=== PATIENT | male | born 1995 | race Caucasian/White ===

== ENCOUNTER 2025-03-29 09:03 | Outpatient (CLI) | payer OTHER, SELFPAY ==
--- NOTE | ~2025-03-29 | US_ITS ---
EXAMINATION: US right upper quadrant DATE: 03/29/2025 09:50 INDICATION: Abnormal liver enzymes TECHNIQUE: Multiple grayscale and Doppler ultrasound images of the abdomen were obtained. COMPARISON: None FINDINGS: Pancreas is normal. The visualized proximal aorta and inferior vena cava are normal. Liver has normal echogenicity and contour, with a smooth surface. No liver lesion identified. No intrahepatic biliary duct dilation suspected. Portal venous flow was seen in the hepatopetal, normal direction and has no rmal Doppler waveform. The gallbladder is normal in appearance. There is no cholelithiasis. The comm on bile duct measures 2 mm, which is normal. Sonographic Melendez sign was reported as negative by the cpo. Right kidney measures 14.0 x 7.2 x 6.3 cm with no hydronephrosis. IMPRESSION: 1. Normal right upper quadrant ultrasound with no cholelithiasis nor intra or extra hepatic biliary d uctal dilation. Reviewed, dictated and finalized at location A. IMPRESSION: 1. Normal right upper quadrant ultrasound with no cholelithiasis nor intra or e xtra hepatic biliary ductal dilation.
--- OUTSIDE RECORDS SUMMARY | 2025-03-29 09:27 | XMS_ITS | Referral Summary ---
Author Organization [facility] Address [facility] [place] [address] Care Team Providers Care Audit Officer Name Role Phone No, Physician Primary Care Provider [phone] Encounters Date Type Department Care Team Description 03/23/2025 12:00 PM CDT Office Visit [facility] Surgery [facility] 6th [place] [address] Closed fracture of left mandibular angle, initial encounter (HCC) (Primary Dx); Closed fracture of body of mandible, unspecified laterality, initial encounter (HCC) 03/08/2025 10:30 AM CDT - 03/08/2025 4:00 PM CDT Surgery [facility] Operating Room [address] [place] [address] Anitra Fisher MD OPEN REDUCTION INTERNAL FIXATION BILATERAL MANDIBULAR FRACTURE. 03/08/2025 10:27 AM CDT Anesthesia Event [facility] Operating Room [address] [place] [address] Danilo Zapien MD Montgomery, Andrea J., NP 03/08/2025 8:38 AM CDT - 03/08/2025 6:00 PM CDT Hospital Encounter [facility] Operating Room [address] [place] [address] Anitra Fisher MD Closed fracture of left mandibular angle, initial encounter (HCC) (Primary Dx); Closed fracture of right side of mandibular body with routine healing, subsequent encounter Discharge Disposition: Discharge to home or self care 03/07/2025 12:45 PM CDT Office Visit [facility] Surgery [address] [facility] 6th [place] [address] [place] [address] Nita Glynn NP Closed fracture of body of mandible, unspecified laterality, initial encounter (HCC) (Primary Dx) 03/01/2025 10:12 PM CDT - 03/01/2025 11:05 PM CDT Emergency [facility] Emergency Department [address] [place] [id number] Kaiden Mata MD Bilateral closed fracture of mandible, initial encounter (HCC) (Primary Dx) Discharge Disposition: Discharge to home or self care from Last 3 Months Allergies No known active allergies Medications HYDROcodone-cornel taminophen (NORCO) 5-325 mg per tabletIndicatio ns:Pain Take 1 tablet by mouth every 6 (six) hours as needed for pain for up to 15 doses 15 tablet 5 Active chlorhexidine (PERIDEX) 0.12 % oral rinse Apply 15 mL to the mouth or throat 2 (two) times a day 900 mL 5 03/31/20 25 Active Additional Information Patient taking differently:15 mL mouth/throat 2 times daily,Indications: Mouth Infection Prevention, Informant: Self, Reported on 03/08/2025 acetaminophen (TYLENOL) 325 mg tablet Take 1 tablet (325 mg total) by mouth every 6 (six) hours as needed 6 Active ibuprofen 200 mg tab/cap Take 2 tablet/capsule (400 mg total) by mouth every 6 (six) hours as needed for pain Active oxyCODONE (ROXICODONE) 5 mg immediate release tabletIndicatio ns:Pain Take 1 tablet (5 mg total) by mouth every 4 (four) hours as needed for pain 15 tablet 5 Active chlorhexidine (PERIDEX) 0.12 % oral rinse Apply 10 mL to the mouth or throat 4 (four) times a day for 15 days 600 mL 5 03/23/20 25 amoxicillin-cla vulanate (AUGMENTIN) 875-125 mg per tabletIndicatio ns:Skin/Soft Tissue Infection Take 1 tablet (875 mg of amoxicillin total) by mouth 2 (two) times a day for 5 days 10 tablet 5 03/13/20 Active Problems Problem Noted Date Diagnosed Date Closed fracture of mandible 03/03/2025 Tears of meniscus and ACL of left knee 6 Immunizations Immunization Administration Dates Next Due DTP / HiB 08/02/1996, 6,03/23/1996,01/19,1995 Hep B, Adolescent or Pediatric 1995 Influenza, Quadrivalent, Spl it, Preservative Free, Intramuscular 09/15/2018 MMR 11/01/1996 OPV 05/25/1996,03/23/1996,01/20/1996 Pneumococcal Polysaccharide PPV23 02/16/2016 Tdap 04/26/2020 Varicella 11/01/1996 Social History Tobacco Use Types Packs/Day Years Used Date Smoking Tobacco: Every Day Vaping Started: 2022 Passive Smoke Exposure: Never Smokeless Tobacco: Never AUDIT-C Answer Date Recorded Q1: How often do you have a drink containing alc ohol? Monthly or less 03/04/2025 Q2: How many drinks containi ng alcohol do you have on a typical day when you are drinking? 10 or more 03/04/2025 Q3: How often do you have si x or more drinks on one occasion? Monthly 03/04/2025 Personal Safety Answer Date Recorded Have you ever been in or are you currently in a harmful physical or emotional relationship or is someone making you feel afraid or unsafe? Patient unable to answer 03/08/2025 Sex and Gender Information Value Date Recorded Sex Assigned at Not on file Legal Sex Male 11:35 PM [employer]PER[employer] Gender Identity Not on file Sexual Orientation Not on file Last Filed Vital Signs Vital Sign Reading Time Taken Comments Blood Pressure 161/91 03/08/2025 4:20 PM CDT Pulse 71 03/08/2025 4:30 PM CDT Temperature 36.5 C (97.7 F) 03/08/2025 2:50 PM CDT Respiratory Rate 16 03/08/2025 4:30 PM CDT Oxygen Saturation 97% 03/08/2025 4:30 PM CDT Inhaled Oxygen Concentration - - Weight 79.4 kg (175 lb) 03/08/2025 9:45 AM CDT Height 172.7 cm (5' 8) 03/04/2025 10:25 AM CDT Body Mass Index 26.61 03/04/2025 10:25 AM CDT Plan of Treatment Not on file Medical Devices Implanted Type Area Towel Cabinet Repairer Device Identifier Shelf Expiration Date Model / Serial / Lot J Carlos Craniomaxillofacial Smart Lock Leibinger Medway 2 [id number] Hole Mandible Mini [id number] - Sna - [id number] Implanted:Qty: 1 on 03/08/2025 by Anitra Fisher MD at [facility] Plate Bilateral : Mandible J Carlos Craniomaxillofacial [id number] / NA / J Carlos Craniomaxillofacial 1.5mm 4 Hole Bar Maxillofacial Mini Plate Bone Titanium [id number] - Sna - [id number] Implanted:Qty: 1 on 03/08/2025 by Anitra Fisher MD at [facility] Plate Bilateral : Mandible Sycamore Craniomaxillofacial [id number] / NA / 6 Hole Left Champy Plate Implanted:Qty: 1 on 03/08/2025 by Anitra Fisher MD at [facility] Plate Left: Mandible Sycamore Craniomaxillofacial [id number] / NA / Description:ITEM NOT FOUND S ENT TO Long [employer] Ruel Vargas match the felix for a similar plate Approved - [facility] Implant Code Used J Carlos Craniomaxillofacial Screw Cmf Mandible Axs Self Tapping 5x2mm Ns 56- - Sna - [id number] Implanted:Qty: 2 on 03/08/2025 by Anitra Fisher MD at [facility] Screw Bilateral : Mandible J Carlos Craniomaxillofacial 56 / NA / Sycamore Craniomaxillofacial Screw Bone 5x2.7mm Emerg Axs St Mandbl Craniomaxfcl Nonstrl 56- - Sna - [id number] Implanted:Qty: 2 on 03/08/2025 by Anitra Fisher MD at [facility] Screw Bilateral : Mandible Sycamore Craniomaxillofacial 56 / NA / Sycamore Craniomaxillofacial Screw Bone 6x2.3mm Axs Sd Mandible Craniomaxfcl Nonstrl [id number] - Sna - [id number] Implanted:Qty: 1 on 03/08/2025 by Anitra Fisher MD at [facility] Screw Bilateral : Mandible Sycamore Craniomaxillofacial [id number] / NA / J Carlos Craniomaxillofacial Screw Bone 10x2.3mm Axs Sd Mandible Craniomaxfcl Lock [id number] - Sna - [id number] Implanted:Qty: 2 on 03/08/2025 by Anitra Fisher MD at [facility] Screw Bilateral : Mandible Sycamore Craniomaxillofacial [id number] / NA / J Carlos Craniomaxillofacial Screw Bone 12x2.3mm Axs Sd Mandible Craniomaxfcl Nonstrl [id number] - Sna - [id number] Implanted:Qty: 1 on 03/08/2025 by Anitra Fisher MD at [facility] Screw Bilateral : Mandible Sycamore Craniomaxillofacial [id number] / NA / J Carlos Craniomaxillofacial Screw Bone 10x2.3mm Axs Sd Mandible Craniomaxfcl Nonstrl [id number] - Sna - [id number] Implanted:Qty: 1 on 03/08/2025 by Anitra Fisher MD at [facility] Screw Bilateral : Mandible J Carlos Craniomaxillofacial [id number] / NA / J Carlos Craniomaxillofacial Screw Bone 6x2mm Axs Mandible Craniomaxfcl Nonstrl 5pk 56 - Sna - [id number] Implanted:Qty: 2 on 03/08/2025 by Anitra Fisher MD at [facility] Screw Bilateral : Mandible J Carlos Craniomaxillofacial 56- / NA / Explanted Type Area Towel Cabinet Repairer Device Identifier Shelf Expiration Date Model / Serial / Lot Sycamore Craniomaxillofacial Screw Cmf Mandible Axs Self Drilling 8x2mm Ns 56 - Sna - [id number] Explanted:Qty: 3 on 03/08/2025 at [facility] Screw Bilateral : Mandible Sycamore Craniomaxillofacial 56 8 / NA / Sycamore Craniomaxillofacial Screw Bone 12x2mm Mmf Axs Sd Craniomaxfcl Self Drill Nonstrl [id number] - Sna - [id number] Explanted:Qty: 4 on 03/08/2025 by Anitra Fisher MD at [facility] Screw Bilateral : Mandible Sycamore Craniomaxillofacial 2 / NA / Procedures Procedure Name Priority Date/Time Associated Diagnosis Comments FL FLUOROSCOPY < 1 HOUR IP Routine 03/08/2025 2:14 PM CDT PA AN PROCEDURE PLACEHOLDER Routine 03/08/2025 11:35 AM CDT PA AN ELECTIVE ENDOTRACHEAL AIRWAY Routine 03/08/2025 11:35 AM CDT EXTRACTION SINGLE TOOTH 03/08/2025 10:32 AM CDT Closed fracture of mandible, unspecified laterality, unspecified mandibular site, initial encounter (HCC) Special Needs GENERAL,CARLYLE, J CARLOS MANDIBLE FRACTURE PRESTON, PLASTIC SURCIAL PRESTON, PLASTIC CHEEK RETRACTOR, [place] BOVIE TIP, EXTEND TIP, EXTENDENED/LONG BIPOLAR, 1% LIDO W/EPI, OPTHALIMIC OINTMENT, SMALL TEGADERMS 4 EYES, TOOTHBRUSH, PERIDEX, 1X3 NEURO-PATTIES W/WAFFR IN, 24G WIRE(LONG) OPEN REDUCTION INTERNAL FIXATION MANDIBULAR FRACTURE. 03/08/2025 10:32 AM CDT Closed fracture of mandible, unspecified laterality, unspecified mandibular site, initial encounter (HCC) Special Needs GENERAL,CARLYLE, J CARLOS MANDIBLE FRACTURE PRESTON, PLASTIC SURCIAL PRESTON, PLASTIC CHEEK RETRACTOR, [place] BOVIE TIP, EXTEND TIP, EXTENDENED/LONG BIPOLAR, 1% LIDO W/EPI, OPTHALIMIC OINTMENT, SMALL TEGADERMS 4 EYES, TOOTHBRUSH, PERIDEX, 1X3 NEURO-PATTIES W/WAFFR IN, 24G WIRE(LONG) EGFR STAT 03/01/2025 10:29 PM CDT DIFFERENTIAL AUTO STAT 03/01/2025 10: 29 PM CDT CBC WITH AUTO DIFFERENTIAL STAT 03/01/2025 10:29 PM CDT BASIC METABOLIC PANEL STAT 03/01/2025 10:[address] CERVICAL SPINE WO CONTRAST ED 03/01/2025 8:[address] HEAD FACIAL BONES WO CONTRAST ED 03/01/2025 8:18 PM CDT from Last 3 Months Results * FL Fluoroscopy < 1 Hour (03/08/2025 2:14 PM CDT) Narrative [facility] - 03/08/2025 2:16 PM CDT The images from this study are not interpreted by Radiology. Please refer to the physician's procedure / OR operative note. Clarita Baugh MD IMG FLUOROSCOPY PROCEDU RES Final Result [facility] * PA AN ELECTIVE ENDOTRACHEAL AIRWAY, PA AN PROCEDURE PLACEHOLDER (03/08/2025 11:35 AM CDT) Narrative Franko Adan CRNA - 03/08/2025 11:35 AM CDT Franko Adan CRNA 03/08/2025 2:15 PM Airway Patient location: OR Urgency: elective Indications for airway management: anesthesia and airway protection Difficult airway: no Staff: Supervising provider: Danilo Zapien MD Placed by: PLATING EQUIPMENT TENDER: Franko Adan CRNA Emergent airway documentation: Risks and benefits discussed: yes Consent obtained: yes Consent given by: patient Airway prep: Preoxygenated: yes Patient position: sniffing Mask difficulty assessment: 2 - vent by mask + OA or adjuvant Spontaneous ventilation during airway: absent Sedation level during airway: GA Final airway details: Final airway type: endotracheal airway Tube type: VIVIANE tube ETT size: 8.0 mm Cuffed: yes Technique used for successful ETT placement: video laryngoscopy Insertion site: right nare Blade type: Nirav Video blade type: Bangura Blade size: 4 Cormack-Lehane (video): grade I - full view of glottis Cuff volume: 7 mL Cuff inflated with: air ETT to nares: 28 cm Placement verified by: auscultation and CO2 detection Airway secured with: silk tape Number of attempts: 1 us Danilo Zapien MD ANESTHESIA ORDERA BLES Edited Result - Final * eGFR (03/01/2025 10:29 PM CDT) eGFR 82 >=60 mL/min/1. 73 m2 Comment: Interpretive Data Reference Interval Normal >/= 90 mL/min/1.73m2 Mildly decreased* 60 - 89 mL/min/1.73m2 Mildly to moderately decreased 45 - 59 mL/min/1.73m2 Moderately to severely decreased 30 - 44 mL/min/1.73m2 Severely decreased 15 - 29 mL/min/1.73m2 Kidney Failure < 15 mL/min/1.73m2 *Relative to young adult level Estimated glomerular filtration rate is determined by the 2020 CKD-EPI equation recommended by the National Kidney Foundation (A Unifying Approach to GFR Estimation: Recommendations of the NKF-ASK Task Force on Reassessing the Inclusion of Race in Diagnosing Kidney Disease, JASN 2020). The CKD-EPI equation should not be used for patients with unstable renal function and has not been validated in children and those over 70. Current interpretive data was last reviewed 2021. Testing performed by: [facility], [address] [place] [address]., [address] Blood 03/01/2025 10:2 9 PM CDT 03/01/2025 10:33 PM CDT us Kaiden Mata MD LAB BLOOD ORDERABLE S Final Result [facility] [address] [facility] [place] [address] * (ABNORMAL) Differential, auto (03/01/2025 10:29 PM CDT) Neutrophil abs 13.25(H) 1.50 - 6.50 K/cumm Comment:Testing performed by : [facility], [address] [place] [address], [place]., [address] Imm gran abs 0.11(H) 0.00 - 0.10 K/cumm [facility] Comment:Testing performed by : [address], [place]., [address] Lymphocyte abs 1.62 0.80 - 3.30 K/cumm [facility] Comment:Testing performed by : [address], [place]., [address] Monocyte abs 0.86(H) 0.20 - 0.80 K/cumm [facility] Comment:Testing performed by : [address], [place]., [address] Eosinophil abs 0.16 0.00 - 0.50 K/cumm [facility] Comment:Testing performed by : [address], [place]., [address] Basophil abs 0.05 0.00 - 0.10 K/cumm [facility] Comment:Testing performed by : [address] [address] Neutrophil pct 82.5 % [facility] Comment: Interpretive Data Percent cell count reference ranges are not reported, since discordance with absolute values may lead to misinterpretation of CBC data. Current Interpretive Data was last revised on 2018. Testing performed by: [address] [address] Imm gran pct 0.7 % [facility] Comment: Interpretive Data Percent cell count reference ranges are not reported, since discordance with absolute values may lead to misinterpretation of CBC data. Current Interpretive Data was last revised on 2018. Testing performed by: [address] [address] Lymphocyte pct 10.1 % [facility] Comment: Interpretive Data Percent cell count reference ranges are not reported, since discordance with absolute values may lead to misinterpretation of CBC data. Current Interpretive Data was last revised on 2018. Testing performed by: [address] [address] Monocyte pct 5.4 % [facility] Comment: Interpretive Data Percent cell count reference ranges are not reported, since discordance with absolute values may lead to misinterpretation of CBC data. Current Interpretive Data was last revised on 2018. Testing performed by: [address] [address] Eosinophil pct 1.0 % [facility] Comment: Interpretive Data Percent cell count reference ranges are not reported, since discordance with absolute values may lead to misinterpretation of CBC data. Current Interpretive Data was last revised on 2018. Testing performed by: [address] [address] Basophil pct 0.3 % [facility] Comment: Interpretive Data Percent cell count reference ranges are not reported, since discordance with absolute values may lead to misinterpretation of CBC data. Current Interpretive Data was last revised on 2018. Testing performed by: [address] [address] Blood 03/01/2025 10:2 9 PM CDT 03/01/2025 10:33 PM CDT us Kaiden Mata MD LAB BLOOD ORDERABLE S Final Result [facility] [address] [facility] Department of Laboratories [place], [place] [id number] * (ABNORMAL) CBC with auto differential (03/01/2025 10:29 PM CDT) WBC 16.05(H) 3.80 - 9.90 K/cumm Comment:Testing performed by : [address] [address] Hgb 15.5 13.0 - 17.5 g/dL [facility] Comment:Testing performed by : [address] [address] Hct 45.2 38.9 - 50.3 % [facility] Comment:Testing performed by : [address] [address] Plt 222 150 - 400 K/cumm [facility] Comment:Testing performed by : [address] [place] [address] MPV 8.9(L) 9.1 - 12.3 fL [facility] Comment:Testing performed by : [address] [address] RBC 5.11 4.30 - 5.80 M/cumm [facility] Comment:Testing performed by : [address] [address] MCV 88.5 81.3 - 96.4 fL [facility] Comment:Testing performed by : [address] [address] MCH 30.3 27.1 - 33.3 pg [facility] Comment:Testing performed by : [address], [address] MCHC 34.3 32.3 - 35.7 g/dL [facility] Comment:Testing performed by : [address], [address] RDW CV 12.5 11.1 - 14.9 % [facility] Comment:Testing performed by : [address], [address] RDW SD 40.9 35.7 - 48.1 fL [facility] Comment:Testing performed by : [address] [address] NRBC abs 0.00 0.00 - 0.01 K/cumm [facility] Comment:Testing performed by : [address] [address] Blood 03/01/2025 10:2 9 PM CDT 03/01/2025 10:33 PM CDT us Kaiden Mata MD LAB BLOOD ORDERABLE S Final Result [facility] [address] [facility] Department of Laboratories [place], [place] [id number] * Basic metabolic panel (03/01/2025 10:29 PM CDT) [facility] Sodium 137 135 - 145 mmol/L Comment:Testing performed by : [address] [address] Potassium, pl 4.4 3.3 - 4.9 mmol/L [facility] Comment:Testing performed by : [address] [address] Chloride 99 97 - 110 mmol/L [facility] Comment:Testing performed by : [address], [place]., [address] CO2 28 22 - 32 mmol/L [facility] Comment:Testing performed by : [address], [place]., [address] Anion gap 10 2 - 15 mmol/L [facility] Comment:Testing performed by : [address], [place]., [address] BUN 19 6 - 25 mg/dL [facility] Comment:Testing performed by : [address], [place]., [address] Creatinine 1.22 0.80 - 1.30 mg/dL [facility] Comment:Testing performed by : [address] [address] Glucose 104 70 - 199 mg/dL [facility] Comment: Interpretive Data Fasting glucose >/= 126 mg/dl is diagnostic for diabetes. Fasting is defined as no caloric intake for at least 8 hours. Fasting glucose between 100 mg/dl to 125 mg/dl is diagnostic of prediabetes. In a patient with classic symptoms of hyperglycemia or hyperglycemic crisis, a random glucose >/= 200 mg/dl is diagnostic for diabetes. In the absence of unequivocal hyperglycemia, results should be confirmed by repeat testing. The classification and Diagnosis of Diabetes Diabetes Care 202; 46: S19-S40. Current interpretive data was last revised 2022. Testing performed by: [address] [address] Calcium 9.7 8.5 - 10.3 mg/dL [facility] Comment:Testing performed by : [address], [place]., [address] Blood 03/01/2025 10:2 9 PM CDT 03/01/2025 10:33 PM CDT us Kaiden [place] Mata MD LAB BLOOD ORDERABLE S Final Result [facility] [address] [facility] Department [place] [address] * CT Head Facial Bones WO Contrast (03/01/2025 8:18 PM CDT) Anatomical Region Laterality Modality Head and Neck N/A Computed Tomogra phy 03/01/2025 9:15 PM CDT Narrative 03/01/2025 9:50 PM CDT EXAM DESCRIPTION: CT CERVICAL SPINE WO CONTRAST; CT HEAD FACIAL BONES WO CONTRAST REASON FOR STUDY: pain Hit in the face with softball, line drive to the face. Pt with left sided facial swelling. Denies LOC but endorses dizziness after incident. No vision issues. ; softball to the face Hit in the face with softball, line drive to the face. Pt with left sided facial swelling. Denies LOC but endorses dizziness after incident. No vision issues. TECHNIQUE: Axial images through the cervical spine with sagittal and coronal reformatted images. Automated exposure control was used as a dose optimization technique for this examination. Axial images through the head and facial bones with sagittal and coronal reformatted images. Automated exposure control was used as a dose optimization technique for this examination. COMPARISON: None available FINDINGS: Head: No acute intra-axial or extra-axial fluid collections. No acute intracranial hemorrhage. No CT evidence of recent territorial infarct. The chaidez-white matter differentiation is preserved. No cerebral or cerebellar atrophy. Normal size and morphology of the ventricular system. No acute intraventricular hemorrhage. Basal cisterns are patent. No midline shift. No cerebral edema. No acute fractures or aggressive osseous lesions. The orbits and globes are unremarkable. Mastoid air cells and paranasal sinuses are clear. Maxillofacial bones: There is an acute essentially nondisplaced fracture of the left mandibular angle extending in close proximity to the 1st left mandibular molar with adjacent locules of soft tissue gas. There are subcutaneous contusions in the left perimandibular facial region with mild asymmetric enlargement of the left masseter muscle likely due to intramuscular hematoma. There is an acute essentially nondisplaced fracture of the anterior right mandibular body extending towards the root of tooth # 27. There is mild adjacent right perimandibular facial subcutaneous contusions. No other fractures are identified. The temporomandibular joints are normal. Mucosal thickening of bilateral maxillary sinuses and ethmoid air cells. The paranasal sinuses are otherwise clear. The ostiomeatal units are patent bilaterally. There is mucosal thickening of the few bilateral mastoid air cells.. The IAC's are normal and symmetric. The nasal septum is at midline. The nasal turbinates are within normal limits. The orbits and globes are unremarkable. A few locules of soft tissue gas extends in the submandibular soft tissues. Cervical spine: The cervical spine alignment is within normal limits. Vertebral body heights are normal. There is no acute fracture. The intervertebral disc spaces are preserved. The facet and uncovertebral joints are intact. There is no osseous neural foraminal or osseous central canal stenosis. No acute osseous abnormality in the imaged upper thoracic spine. No aggressive bone lesions. Neck soft tissues demonstrate no acute abnormality. No cervical mass or cervical lymphadenopathy. Imaged lung apices demonstrate mild atelectasis. IMPRESSION: 1. No acute intracranial abnormalities. 2. No CT evidence of acute traumatic injury to cervical spine. 3. Acute essentially nondisplaced fracture of the left mandibular angle extending in close proximity to the 1st left mandibular molar with adjacent locules of soft tissue gas. Subcutaneous contusions in the left perimandibular facial region with mild asymmetric enlargement of the left masseter muscle likely due to intramuscular hematoma. 4. Acute essentially nondisplaced fracture of the anterior right mandibular body extending towards the root of tooth # 27. There is mild adjacent right perimandibular facial subcutaneous contusions. THIS IS AN ELECTRONICALLY VERIFIED FINAL REPORT 03/01/2025 9:50 PM - Electronically signed by Jaja Beltran M.D. AT: AT Report ID: [id number] Reading Location: [id number] Procedure Note Jaja Beltran MD - 03/01/2025 EXAM DESCRIPTION: CT CERVICAL SPINE WO CONTRAST; CT HEAD FACIAL BONES WO CONTRAST REASON FOR STUDY: pain Hit in the face with softball, line drive to the face. Pt with left sided facial swelling. Denies LOC but endorses dizziness after incident. Novision issues. ; softball to the face Hit in the face with softball, line drive to the face. Pt with left sided facial swelling. Denies LOC but endorses dizziness after incident. Novision issues. TECHNIQUE: Axial images through the cervical spine with sagittal andcoronal reformatted images. Automated exposure control was used as a doseoptimization technique for this examination. Axial images through the head and facial bones with sagittal and coronal reformatted images. Automated exposure control was used as a doseoptimization technique for this examination. COMPARISON: None available FINDINGS: Head: No acute intra-axial or extra-axial fluid collections. No acuteintracranial hemorrhage. No CT evidence of recent territorial infarct. The chaidez-white matter differentiation is preserved. No cerebral or cerebellar atrophy. Normal size and morphology of the ventricular system. No acute intraventricular hemorrhage. Basal cisterns are patent. No midlineshift. No cerebral edema. No acute fractures or aggressive osseous lesions. The orbits and globes are unremarkable. Mastoid air cells and paranasal sinuses are clear. Maxillofacial bones: There is an acute essentially nondisplaced fracture of the left mandibular angle extending in close proximity to the 1st left mandibular molar with adjacent locules of soft tissue gas. There are subcutaneous contusions inthe left perimandibular facial region with mild asymmetric enlargement of theleft masseter muscle likely due to intramuscular hematoma. There is an acute essentially nondisplaced fracture of the anterior right mandibular body extending towards the root of tooth # 27. There is mild adjacent right perimandibular facial subcutaneous contusions. No other fractures are identified. The temporomandibular joints arenormal. Mucosal thickening of bilateral maxillary sinuses and ethmoid air cells.The paranasal sinuses are otherwise clear. The ostiomeatal units are patent bilaterally. There is mucosal thickening of the few bilateral mastoid air cells.. The IAC's are normal and symmetric. The nasal septum is at midline. The nasal turbinates are within normal limits. The orbits and globes are unremarkable. A few locules of soft tissue gas extends in the submandibular softtissues. Cervical spine: The cervical spine alignment is within normal limits. Vertebral bodyheights are normal. There is no acute fracture. The intervertebral disc spacesare preserved. The facet and uncovertebral joints are intact. There is no osseous neural foraminal or osseous central canal stenosis. No acute osseous abnormality in the imaged upper thoracic spine. No aggressive bone lesions. Neck soft tissues demonstrate no acute abnormality. No cervical mass or cervical lymphadenopathy. Imaged lung apices demonstrate mildatelectasis. IMPRESSION: 1. No acute intracranial abnormalities. 2. No CT evidence of acute traumatic injury to cervical spine. 3. Acute essentially nondisplaced fracture of the left mandibular angle extending in close proximity to the 1st left mandibular molar withadjacent locules of soft tissue gas. Subcutaneous contusions in the leftperimandibular facial region with mild asymmetric enlargement of the left masseter muscle likely due to intramuscular hematoma. 4. Acute essentially nondisplaced fracture of the anterior rightmandibular body extending towards the root of tooth # 27. There is mild adjacentright perimandibular facial subcutaneous contusions. THIS IS AN ELECTRONICALLY VERIFIED FINAL REPORT 03/01/2025 9:50 PM - Electronically signed by Jaja Beltran M.D. AT: AT Report ID: [id number] Reading Location: [id number] CT PROCEDURES Sepideh l Result * CT Cervical Spine WO Contrast (03/01/2025 8:18 PM CDT) Anatomical Region Laterality Modality Spine N/A Computed Tomogra phy 03/01/2025 9:15 PM CDT Narrative 03/01/2025 9:50 PM CDT EXAM DESCRIPTION: CT CERVICAL SPINE WO CONTRAST; CT HEAD FACIAL BONES WO CONTRAST REASON FOR STUDY: pain Hit in the face with softball, line drive to the face. Pt with left sided facial swelling. Denies LOC but endorses dizziness after incident. No vision issues. ; softball to the face Hit in the face with softball, line drive to the face. Pt with left sided facial swelling. Denies LOC but endorses dizziness after incident. No vision issues. TECHNIQUE: Axial images through the cervical spine with sagittal and coronal reformatted images. Automated exposure control was used as a dose optimization technique for this examination. Axial images through the head and facial bones with sagittal and coronal reformatted images. Automated exposure control was used as a dose optimization technique for this examination. COMPARISON: None available FINDINGS: Head: No acute intra-axial or extra-axial fluid collections. No acute intracranial hemorrhage. No CT evidence of recent territorial infarct. The chaidez-white matter differentiation is preserved. No cerebral or cerebellar atrophy. Normal size and morphology of the ventricular system. No acute intraventricular hemorrhage. Basal cisterns are patent. No midline shift. No cerebral edema. No acute fractures or aggressive osseous lesions. The orbits and globes are unremarkable. Mastoid air cells and paranasal sinuses are clear. Maxillofacial bones: There is an acute essentially nondisplaced fracture of the left mandibular angle extending in close proximity to the 1st left mandibular molar with adjacent locules of soft tissue gas. There are subcutaneous contusions in the left perimandibular facial region with mild asymmetric enlargement of the left masseter muscle likely due to intramuscular hematoma. There is an acute essentially nondisplaced fracture of the anterior right mandibular body extending towards the root of tooth # 27. There is mild adjacent right perimandibular facial subcutaneous contusions. No other fractures are identified. The temporomandibular joints are normal. Mucosal thickening of bilateral maxillary sinuses and ethmoid air cells. The paranasal sinuses are otherwise clear. The ostiomeatal units are patent bilaterally. There is mucosal thickening of the few bilateral mastoid air cells.. The IAC's are normal and symmetric. The nasal septum is at midline. The nasal turbinates are within normal limits. The orbits and globes are unremarkable. A few locules of soft tissue gas extends in the submandibular soft tissues. Cervical spine: The cervical spine alignment is within normal limits. Vertebral body heights are normal. There is no acute fracture. The intervertebral disc spaces are preserved. The facet and uncovertebral joints are intact. There is no osseous neural foraminal or osseous central canal stenosis. No acute osseous abnormality in the imaged upper thoracic spine. No aggressive bone lesions. Neck soft tissues demonstrate no acute abnormality. No cervical mass or cervical lymphadenopathy. Imaged lung apices demonstrate mild atelectasis. IMPRESSION: 1. No acute intracranial abnormalities. 2. No CT evidence of acute traumatic injury to cervical spine. 3. Acute essentially nondisplaced fracture of the left mandibular angle extending in close proximity to the 1st left mandibular molar with adjacent locules of soft tissue gas. Subcutaneous contusions in the left perimandibular facial region with mild asymmetric enlargement of the left masseter muscle likely due to intramuscular hematoma. 4. Acute essentially nondisplaced fracture of the anterior right mandibular body extending towards the root of tooth # 27. There is mild adjacent right perimandibular facial subcutaneous contusions. THIS IS AN ELECTRONICALLY VERIFIED FINAL REPORT 03/01/2025 9:50 PM - Electronically signed by Jaja Beltran M.D. AT: AT Report ID: [id number] Reading Location: [id number] Procedure Note Jaja Beltran MD - 03/01/2025 EXAM DESCRIPTION: CT CERVICAL SPINE WO CONTRAST; CT HEAD FACIAL BONES WO CONTRAST REASON FOR STUDY: pain Hit in the face with softball, line drive to the face. Pt with left sided facial swelling. Denies LOC but endorses dizziness after incident. Novision issues. ; softball to the face Hit in the face with softball, line drive to the face. Pt with left sided facial swelling. Denies LOC but endorses dizziness after incident. Novision issues. TECHNIQUE: Axial images through the cervical spine with sagittal andcoronal reformatted images. Automated exposure control was used as a doseoptimization technique for this examination. Axial images through the head and facial bones with sagittal and coronal reformatted images. Automated exposure control was used as a doseoptimization technique for this examination. COMPARISON: None available FINDINGS: Head: No acute intra-axial or extra-axial fluid collections. No acuteintracranial hemorrhage. No CT evidence of recent territorial infarct. The chaidez-white matter differentiation is preserved. No cerebral or cerebellar atrophy. Normal size and morphology of the ventricular system. No acute intraventricular hemorrhage. Basal cisterns are patent. No midlineshift. No cerebral edema. No acute fractures or aggressive osseous lesions. The orbits and globes are unremarkable. Mastoid air cells and paranasal sinuses are clear. Maxillofacial bones: There is an acute essentially nondisplaced fracture of the left mandibular angle extending in close proximity to the 1st left mandibular molar with adjacent locules of soft tissue gas. There are subcutaneous contusions inthe left perimandibular facial region with mild asymmetric enlargement of theleft masseter muscle likely due to intramuscular hematoma. There is an acute essentially nondisplaced fracture of the anterior right mandibular body extending towards the root of tooth # 27. There is mild adjacent right perimandibular facial subcutaneous contusions. No other fractures are identified. The temporomandibular joints arenormal. Mucosal thickening of bilateral maxillary sinuses and ethmoid air cells.The paranasal sinuses are otherwise clear. The ostiomeatal units are patent bilaterally. There is mucosal thickening of the few bilateral mastoid air cells.. The IAC's are normal and symmetric. The nasal septum is at midline. The nasal turbinates are within normal limits. The orbits and globes are unremarkable. A few locules of soft tissue gas extends in the submandibular softtissues. Cervical spine: The cervical spine alignment is within normal limits. Vertebral bodyheights are normal. There is no acute fracture. The intervertebral disc spacesare preserved. The facet and uncovertebral joints are intact. There is no osseous neural foraminal or osseous central canal stenosis. No acute osseous abnormality in the imaged upper thoracic spine. No aggressive bone lesions. Neck soft tissues demonstrate no acute abnormality. No cervical mass or cervical lymphadenopathy. Imaged lung apices demonstrate mildatelectasis. IMPRESSION: 1. No acute intracranial abnormalities. 2. No CT evidence of acute traumatic injury to cervical spine. 3. Acute essentially nondisplaced fracture of the left mandibular angle extending in close proximity to the 1st left mandibular molar withadjacent locules of soft tissue gas. Subcutaneous contusions in the leftperimandibular facial region with mild asymmetric enlargement of the left masseter muscle likely due to intramuscular hematoma. 4. Acute essentially nondisplaced fracture of the anterior rightmandibular body extending towards the root of tooth # 27. There is mild adjacentright perimandibular facial subcutaneous contusions. THIS IS AN ELECTRONICALLY VERIFIED FINAL REPORT 03/01/2025 9:50 PM - Electronically signed by Jaja Beltran M.D. AT: AT Report ID: [id number] Reading Location: [id number] [facility] CT PROCEDURES Sepideh l Result from Last 3 Months Insurance [employer] SIG [id number] [employer] SIG [id number] Care Teams Audit Officer Relationship Specialty Start Date End Date No, Physician PCP - General 03/01/25
--- OUTSIDE RECORDS SUMMARY | 2025-03-29 09:27 | XMS_ITS | Clinical Summary ---
Author Organization [facility] Address [address] [place] [address] Phone Care Team Providers Care Rental Boats Caretaker Name Role Phone Rosalie Monroe APRN, OIL AND GAS DRAFTER Primary Care Provider Allergies No known active allergies Medications acetaminophen (TYLENOL) 325 MG Tablet Take 1 Tab by mouth every 6 hours as needed for Pain or Fever (for temperature greater than 100.4 F). Do not exceed 4000 mg of acetaminophen in 24 hour from all sources. 6 Active Active Problems Problem Noted Date Diagnosed Date Tears of meniscus and ACL of left knee 6 Immunizations Immunization Administration Dates Next Due Pneumococcal Vaccine Adult - 23 Valent 6 Family History Relation Name Status Comments Father Alive Mother Alive Social History Tobacco Use Types Packs/Day Years Used Date Smoking Tobacco: Never Alcohol Use Standard Drinks/Week Comments No 0 (1 standard drink = 0.6 oz pur e alcohol) Sex and Gender Information Value Date Recorded Sex Assigned at Not on file Legal Sex Male 10:57 AM CDT Gender Identity Not on file Sexual Orientation Not on file Last Filed Vital Signs Vital Sign Reading Time Taken Comments Blood Pressure 120/52 02/16/2016 7:32 AM CDT Pulse 60 02/16/2016 7:32 AM CDT Temperature 35.7 C (96.3 F) 02/16/2016 7:32 AM CDT Respiratory Rate 16 02/16/2016 7:32 AM CDT Oxygen Saturation 99% 02/16/2016 4:01 AM CDT Inhaled Oxygen Concentration - - Weight 108.9 kg (240 lb) 02/15/2016 1:00 PM CDT Height 172.7 cm (5' 8) 02/15/2016 1:00 PM CDT Body Mass Index 36.49 02/15/2016 1:00 PM CDT Plan of Treatment Health Maintenance Due Date Last Done Comments Hepatitis C Virus (HCV) Screening 1995 TdaP Immunization 1995 Hepatitis B Immunization (1 of 3 - 19+ 3-dose series) 2014 Influenza Immunization (#1) 2024 SARS-COV-2 Immunization ( season) 2024 Respiratory Syncytial Virus (RSV) Immunization (Adult) (1 - 1-dose 75+ series) 2070 Pneumococcal Immunization Combined Aged Out 2015 No longer eligible based on patient's age to complete this topic Meningococcal Immunization (ACWY) Aged Out No longer eligible based on patient's age to complete this topic Rotavirus Immunization Aged Out No lo nger eligible based on patient's age to complete this topic Medical Devices Implanted Type Area Weld Technician Device Identifier Shelf Expiration Date Model / Serial / Lot Implant Ligament Patellar - [id number] Implanted:Qty: 1 on 02/15/2016 by Richie Turk MD at [facility] IMPLANT Left: Leg [employer] 11/27/2020 [facility] / / [id number] Tightrope Implanted:Qty: 1 on 02/15/2016 by Richie Turk MD at [facility] Left: Leg [employer] 11/19/2020 / / [id number] Biocomposite Interference Screw Implanted:Qty: 1 on 02/15/2016 by Richie Turk MD at [facility] Left: Leg [employer] 03/20/2016 [id number] / / [id number] Suture [place], Biocomposite Swivelock, Double Loaded Implanted:Qty: 1 on 02/15/2016 by Richie Turk MD at [facility] Left: Knee [employer] 12/17/2017 [id number] / / [id number] Insurance MEDICAID [place] Advance Directives * Full Code (Latest Code Status on File) Date Activated Date Inactivated Comments 02/15/2016 2:42 PM 02/16/2016 3:41 PM CPR-Full Brijesh atment: FULL ARREST: Attempt Resuscitation/CPR wit intubation and mechanical ventilation. PRE-ARREST: Use entire range of life support measures to stabilize the patient. Care Teams Rental Boats Caretaker Relationship Specialty Start Date End Date Rosalie Monroe, MACHINE STRIPPER CUTTER, OIL AND GAS DRAFTER [address] [place] [address] PCP - General Certified Nurse Practitioner 02/07/16
--- OUTSIDE RECORDS SUMMARY | 2025-03-29 09:27 | XMS_ITS | Clinical Summary ---
Author Organization [facility] Address [facility] [place] [address] Care Team Providers Care Arabic Translator Name Role Phone No, Physician Primary Care Provider [phone] Allergies No known active allergies Medications HYDROcodone-cornel [...] meniscus and ACL of left knee 6 Encounters Date Type Department Care Team Description 03/23/2025 12:00 PM CDT Office Visit [facility] Surgery [address] [place] [address] 6th [place] [address] Closed fracture of left mandibular angle, initial encounter (HCC) (Primary Dx); Closed fracture of body of mandible, unspecified laterality, initial encounter (HCC) 03/08/2025 10:30 AM CDT - 03/08/2025 4:00 PM CDT Surgery [facility] Operating Room [address] [place] [address] Anitra Fisher MD OPEN REDUCTION INTERNAL FIXATION BILATERAL MANDIBULAR FRACTURE. 03/08/2025 10:27 AM CDT Anesthesia Event [facility] Operating Room [address] [place] [address] Danilo Zapien MD Montgomery, Andrea J., NP 03/08/2025 8:38 AM CDT - 03/08/2025 6:00 PM CDT Hospital Encounter [facility] Operating Room [address] [place] [address] Anitra Fisher MD Closed fracture of left mandibular angle, initial encounter (HCC) (Primary Dx); Closed fracture of right side of mandibular body with routine healing, subsequent encounter Discharge Disposition: Discharge to home or self care 03/07/2025 12:45 PM CDT Office Visit [facility] Surgery [address] [place] [address] 6th [place] [address] Nita Glynn NP Closed fracture of body of mandible, unspecified laterality, initial encounter (HCC) (Primary Dx) 03/01/2025 10:12 PM CDT - 03/01/2025 11:05 PM CDT Emergency [facility] Emergency Department [address] [place] [address] Kaiden Mata MD Bilateral closed fracture of mandible, initial encounter (HCC) (Primary Dx) Discharge Disposition: Discharge to home or self care from Last 3 Months Immunizations Immunization Administration Dates Next Due DTP / HiB 08/02/1996, 6,03/23/1996,01/19,1995 Hep B, Adolescent or Pediatric 1995 Influenza, Quadrivalent, Spl it, Preservative Free, Intramuscular 09/15/2018 MMR 11/01/1996 OPV 05/25/1996,03/23/1996,01/20/1996 Pneumococcal Polysaccharide PPV23 02/16/2016 Tdap 04/26/2020 Varicella 11/01/1996 Surgical History Surgery Date Site/Laterality Comments ANTERIOR CRUCIATE LIGAMENT REPAIR 10/20/2015 - 10/19/2016 ORIF MANDIBULAR FRACTURE 03/08/2025 Bilateral ORIF MANDIBULAR FRACTURE 03/08/2025 Head/Bilateral Procedure: OPEN REDUCTION INTERNAL FIXATION BILATERAL MANDIBULAR FRACTURE.; Surgeon: Anitra Fisher MD; Location: [facility] OR POD 2; Service: Plastics; Laterality: Bilateral; NASAL INTUBATION Medical devices from this surgery are in the Medical Devices section. 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 Gender Identity Not on file Sexual Orientation Not on file Obstetrics History Last Filed Vital Signs Vital Sign Reading [...] 03/04/2025 10:25 AM CDT Plan of Treatment Health Maintenance Due Date Last Done Comments Depression Screening 1995 Hepatitis C Screening 1995 Varicella Vaccines (2 of 2 - 2-dose childhood series) 1999 11/01/1996 Regular Well Visit/Exam 18-64 2013 Pneumococcal vaccine <65 (2 of 2 - PCV) 02/15/2017 02/16/2016 Covid-19 Vaccine (3 - season) 2024 06/27/2021, 05/30/2021 Influenza Vaccine (Season Ended) 2025 09/15/2018 DTaP/Tdap/Td Vaccine (5 - Td or Tdap) 04/26/2030 04/26/2020, 08/02/1996, 05/25/1996, Additional history exists Hepatitis B Screening Completed 1995 HPV Vaccines Aged Out No longer eligi ble based on patient's age to complete this topic Medical Devices Implanted Type Area Carpet Repairer Device Identifier Shelf Expiration Date Model / Serial / Lot Moss Craniomaxillofacial Smart Lock Leibinger [place] 2 [id number] 4 Hole Mandible Mini [id number] - Sna - [id number] Implanted:Qty: 1 on 03/08/2025 by Anitra Fisher MD at [facility] Plate Bilateral : Mandible Moss Craniomaxillofacial [id number] / NA / J Carlos Craniomaxillofacial 1.5mm 4 Hole Bar Maxillofacial Mini Plate Bone Titanium [id number] - Sna - [id number] Implanted:Qty: 1 on 03/08/2025 by Anitra Fisher MD at [facility] Plate Bilateral : Mandible Moss Craniomaxillofacial [id number] / NA / 6 Hole Left Champy Plate Implanted:Qty: 1 on 03/08/2025 by Anitra Fisher MD at [facility] Plate Left: Mandible J Carlos Craniomaxillofacial [id number] / NA / Description:ITEM NOT FOUND S ENT TO [employer]as match the felix for a similar plate Approved - [facility] Implant Code Used J Carlos Craniomaxillofacial Screw Cmf Mandible Axs Self Tapping 5x2mm Ns [id number] - Sna - [id number] Implanted:Qty: 2 on 03/08/2025 by Anitra Fisher MD at [facility] Screw Bilateral : Mandible J Carlos Craniomaxillofacial [id number] / NA / J Carlos Craniomaxillofacial Screw Bone 5x2.7mm Emerg Axs St Mandbl Craniomaxfcl Nonstrl 56-00296 - Sna - [id number] Implanted:Qty: 2 on 03/08/2025 by Anitra Fisher MD at [facility] Screw Bilateral : Mandible Moss Craniomaxillofacial [id number] / NA / Moss Craniomaxillofacial Screw Bone 6x2.3mm Axs Sd Mandible Craniomaxfcl Nonstrl 56-81986 - Sna - [id number] Implanted:Qty: 1 on 03/08/2025 by Anitra Fisher MD at [facility] Screw Bilateral : Mandible J Carlos Craniomaxillofacial [id number] / NA / Moss Craniomaxillofacial Screw Bone 10x2.3mm Axs Sd Mandible Craniomaxfcl Lock 56-99532 - Sna - [id number] Implanted:Qty: 2 on 03/08/2025 by Anitra Fisher MD at [facility] Screw Bilateral : Mandible Moss Craniomaxillofacial [id number] / NA / Moss Craniomaxillofacial Screw Bone 12x2.3mm Axs Sd Mandible Craniomaxfcl Nonstrl 56-52190 - Sna - [id number] Implanted:Qty: 1 on 03/08/2025 by Anitra Fisher MD at [facility] Screw Bilateral : Mandible Moss Craniomaxillofacial [id number] / NA / Moss Craniomaxillofacial Screw Bone 10x2.3mm Axs Sd Mandible Craniomaxfcl Nonstrl 56-56512 - Sna - [id number] Implanted:Qty: 1 on 03/08/2025 by Anitra Fisher MD at [facility] Screw Bilateral : Mandible J Carlos Craniomaxillofacial 56 / NA / J Carlos Craniomaxillofacial Screw Bone 6x2mm Axs Mandible Craniomaxfcl Nonstrl 5pk 56 - Sna - [id number] Implanted:Qty: 2 on 03/08/2025 by Anitra Fisher MD at [facility] Screw Bilateral : Mandible J Carlos Craniomaxillofacial 56 / NA / Explanted Type Area Carpet Repairer Device Identifier Shelf Expiration Date Model / Serial / Lot Moss Craniomaxillofacial Screw Cmf Mandible Axs Self Drilling 8x2mm Ns 56 - Sna - [id number] Explanted:Qty: 3 on 03/08/2025 at [facility] Screw Bilateral : Mandible Moss Craniomaxillofacial 8 / NA / J Carlos Craniomaxillofacial Screw Bone 12x2mm Mmf Axs Sd Craniomaxfcl Self Drill Nonstrl 56 - Sna - [id number] Explanted:Qty: 4 on 03/08/2025 by Anitra Fisher MD at [facility] Screw Bilateral : Mandible J Carlos Craniomaxillofacial 2 / NA / Procedures Procedure Name Priority Date/Time Associated Diagnosis Comments FL FLUOROSCOPY < 1 HOUR IP Routine 03/08/2025 2:14 PM CDT LA AN PROCEDURE PLACEHOLDER Routine 03/08/2025 11:35 AM CDT LA AN ELECTIVE ENDOTRACHEAL AIRWAY Routine 03/08/2025 11:35 [...] 1 Hour (03/08/2025 2:14 PM CDT) Narrative RAD_PACS_[facility] - 03/08/2025 2:16 PM CDT The images from this study are not interpreted by Radiology. Please refer to the physician's procedure / OR operative note. us Clarita Baugh MD IMG FLUOROSCOPY PROCEDU RES Final Result RAD_PACS_[facility] * LA AN ELECTIVE ENDOTRACHEAL AIRWAY, LA AN PROCEDURE PLACEHOLDER (03/08/2025 11:35 AM CDT) Narrative Franko Adan CRNA - 03/08/2025 11:35 AM CDT Franko Adan CRNA 03/08/2025 2:15 PM Airway Patient location: OR Urgency: elective Indications for airway management: anesthesia and airway protection Difficult airway: no Staff: Supervising provider: Danilo Zapien MD Placed by: LIGHT ADJUSTER: Franko Adan CRNA Emergent airway documentation: Risks [...] was last reviewed 2021. Testing performed by: [address] [address] Blood 03/01/2025 10:2 9 PM CDT 03/01/2025 10:33 PM CDT us Kaiden Mata MD LAB BLOOD ORDERABLE S Final Result [place] [id number] [facility] [place] [address] * (ABNORMAL) Differential, auto (03/01/2025 10:29 PM CDT) Neutrophil abs 13.25(H) 1.50 - 6.50 K/cumm Comment:Testing performed by : [address] [address] Imm gran abs 0.11(H) 0.00 - 0.10 K/cumm [facility] Comment:Testing performed by : [address] [address] Lymphocyte abs 1.62 0.80 - 3.30 K/cumm [facility] Comment:Testing performed by : [address] [address] Monocyte abs 0.86(H) 0.20 - 0.80 K/cumm [facility] Comment:Testing performed by : [address] [address] Eosinophil abs 0.16 0.00 - 0.50 K/cumm [facility] Comment:Testing performed by : [address] [address] Basophil abs 0.05 0.00 - 0.10 K/cumm [facility] Comment:Testing performed by : [address] [address] Neutrophil pct 82.5 % [facility] Comment: Interpretive Data Percent cell count reference ranges are not reported, since discordance with absolute values may lead to misinterpretation of CBC data. Current Interpretive Data was last revised on 2018. Testing performed by: [address] [address] Imm gran pct 0.7 % [facility] Comment: Interpretive Data Percent cell count reference ranges are not reported, since discordance with absolute values may lead to misinterpretation of CBC data. Current Interpretive Data was last revised on 2018. Testing performed by: [address] [address] Lymphocyte pct 10.1 % [facility] Comment: Interpretive Data Percent cell count reference ranges are not reported, since discordance with absolute values may lead to misinterpretation of CBC data. Current Interpretive Data was last revised on 2018. Testing performed by: [address] [address] Monocyte pct 5.4 % [facility] Comment: Interpretive Data Percent cell count reference ranges are not reported, since discordance with absolute values may lead to misinterpretation of CBC data. Current Interpretive Data was last revised on 2018. Testing performed by: [address] [address] Eosinophil pct 1.0 % [facility] Comment: Interpretive Data Percent cell count reference ranges are not reported, since discordance with absolute values may lead to misinterpretation of CBC data. Current Interpretive Data was last revised on 2018. Testing performed by: [address] [address] Basophil pct 0.3 % [facility] Comment: Interpretive Data Percent cell count reference ranges are not reported, since discordance with absolute values may lead to misinterpretation of CBC data. Current Interpretive Data was last revised on 2018. Testing performed by: [address] [address] Blood 03/01/2025 10:2 9 PM CDT 03/01/2025 10:33 PM CDT us Kaiden Mata MD LAB BLOOD ORDERABLE S Final Result [facility] [address] [facility] [place] [address] * (ABNORMAL) CBC with auto differential (03/01/2025 10:29 PM CDT) WBC 16.05(H) 3.80 - 9.90 K/cumm Comment:Testing performed by : [address] [address] Hgb 15.5 13.0 - 17.5 g/dL [facility] Comment:Testing performed by : [address] [address] Hct 45.2 38.9 - 50.3 % [facility] Comment:Testing performed by : [address] [address] Plt 222 150 - 400 K/cumm [facility] Comment:Testing performed by : [address] [address] MPV 8.9(L) 9.1 - 12.3 fL [facility] Comment:Testing performed by : [address] [address] RBC 5.11 4.30 - 5.80 M/cumm [facility] Comment:Testing performed by : [address] [address] MCV 88.5 81.3 - 96.4 fL [facility] Comment:Testing performed by : [address] [address] MCH 30.3 27.1 - 33.3 pg [facility] Comment:Testing performed by : [address] [place]., [address] MCHC 34.3 32.3 - 35.7 g/dL [facility] [place] Comment:Testing performed by : [address] [address] RDW CV 12.5 11.1 - 14.9 % [facility] [place] Comment:Testing performed by : [address] [address] RDW SD 40.9 35.7 - 48.1 fL [facility] [place] Comment:Testing performed by : [address] [address] NRBC abs 0.00 0.00 - 0.01 K/cumm [facility] [place] Comment:Testing performed by : [address] [address] Blood 03/01/2025 10:2 9 PM CDT 03/01/2025 10:33 PM CDT Kaiden Mata MD LAB BLOOD ORDERABLE S Final Result [facility] Department of Laboratories [place], [place] [id number] * Basic metabolic panel (03/01/2025 10:29 PM CDT) Sodium 137 135 - 145 mmol/L Comment:Testing performed by : [address] [address] Potassium, pl 4.4 3.3 - 4.9 mmol/L [facility] [place] Comment:Testing performed by : [address] [address] Chloride 99 97 - 110 mmol/L [facility] [place] Comment:Testing performed by : [address] [address] CO2 28 22 - 32 mmol/L [facility] [place] Comment:Testing performed by : [address] [address] Anion gap 10 2 - 15 mmol/L [facility] [place] Comment:Testing performed by : [address] [address] BUN 19 6 - 25 mg/dL [facility] Comment:Testing performed by : [address] [address] Creatinine 1.22 0.80 - 1.30 mg/dL [facility] Comment:Testing performed by : [address] [address] Glucose 104 70 - 199 mg/dL [facility] Comment: Interpretive Data Fasting glucose >/= 126 [...] was last revised 2022. Testing performed by: [address] [address] Calcium 9.7 8.5 - 10.3 mg/dL [facility] Comment:Testing performed by : [address] [address] Blood 03/01/2025 10:2 9 PM CDT 03/01/2025 10:33 PM CDT us Kaiden Mata MD LAB BLOOD ORDERABLE S Final Result Performing Organization Address City/State/[facility] Co de Phone Number [facility] [address] [facility] [place] [address] * CT Head Facial Bones WO Contrast [...] Jaja Beltran M.D. AT: AT Report ID: [id number] Reading Location: [id number] Procedure Note Jaja Beltran MD - 03/01/2025 [...] Jaja Beltran M.D. AT: AT Report ID: [id number] Reading Location: [place] [address] PROCEDURES Sepideh l [...] Jaja Beltran M.D. AT: AT Report ID: [id number] Reading Location: [id number] Procedure Note Jaja Beltran MD - 05/13/2025 EXAM DESCRIPTION: CT CERVICAL SPINE WO CONTRAST; [...] Jaja Beltran M.D. AT: AT Report ID: [id number] Reading Location: [place] [address] PROCEDURES Sepideh l Result from Last 3 Months Insurance [employer] SIG [id number] [employer] SIG [id number] Care Teams Arabic Translator Relationship Specialty Start Date End Date No, Physician PCP - General 03/01/25
[2025-03-29 10:08] LABS: Prothrombin Time 13.6 Seconds (11.1-14.7)
[2025-03-29 10:45] LABS: Hepatitis B Surface Antigen Negative (Negative)
[2025-03-29 10:51] LABS: HAV RESULT Negative (Negative); Hepatitis B Core IgM Result Negative (Negative)
[2025-03-29 11:03] LABS: Hepatitis C Virus Antibody Negative (Negative)
== END 2025-03-29 09:04 | disposition home or self-care (01) ==
PROVIDERS: PCP Family Medicine; Visit Provider Family Medicine
DX: R79.89 Other specified abnormal findings of blood chemistry (principal)
CPT/HCPCS: 36415; 76705; 80074; 85610